=== PATIENT | male | born 1950 | race African-American/Black ===

== ENCOUNTER → 2017-08-18 | Outpatient (CLI) | payer MEDICARE ==
[~2017-08-18] MED LIST: ACCUPRIL40 MG PO; AMLODIPINE BESY10 MG PO; FLOMAX0.4 MG PO
--- NOTE | ~2017-08-18 | S ---
[facility] [address] SURGICAL PATH RPT PROCEDURE Name: ISABEL BOLANOS Room #: REG [facility]..#: [id number] Admission: 08/18/17 Date of : 50 Discharge: Report #: [id number] Path Case #: [id number] PATHOLOGY REPORT COLLECTION DATE: 08/18/2017 RECEIVED DATE: 08/18/2017 SUBMITTING PHYS: Dr. Ryne Oliva OTHER PHYS: Dr. Ryne Martinez SPECIMEN(S) RECEIVED: A.Right pelvic lymph node * * * * * * * * * * * * FINAL DIAGNOSIS: Tissue designated as "right pelvic lymph node", needle core biopsy: - ATYPICAL ACINAR PROLIFERATION WITH CRIBRIFORM ARCHITECTURE. (PLEASE SEE COMMENT) - No background lymph node tissue present in the sample. (IUV:jovany; 08/20/2017) COMMENT: Examination shows cribriform architecture within the acinar glands sampled. Focal pigment is identified. Occasional to rare macronucleoli are present as well. Per discussion with Dr. Ryne Oliva at approximately 12:30 p.m. on 08/20/2017, this represents a lymph node which is towards the inguinal region and not in the vicinity of prostate. There is no residual lymph node tissue present in this sample. Definitive capsule is not identified as well. While findings may represent a metastatic prostatic adenocarcinoma (Cobden grade 4+3), a partially sampled seminal vesicle cannot be excluded based on histology. Correlate with clinical findings and with radiographic findings to ascertain that this represents a metastatic adenocarcinoma within the lymph node. Excision of additional tissue for complete morphologic evaluation may provide additional information if clinically indicated. Co-review: Dr. Nathalia Matta and Dr. Delaney Castillo. (IUV:jovany; 08/20/2017) PATHOLOGIST: Awa Barnard M.D. REPORT ELECTRONICALLY SIGNED BY: Awa Barnard M.D. DATE/TIME: 08/20/2017 15:00 * * * * * * * * * * * * GROSS PATHOLOGY: Received in formalin labeled "Isabel Bolanos," and verified as, "right pelvic lymph node". Received are four distinct needle cores of [address] [address] SURGICAL PATH RPT PROCEDURE Name: ISABEL BOLANOS [id number]mission: 08/18/17 Date of : 50 Discharge: Report #: [id number] Path Case #: [id number] soft tissue ranging from 0.4 to 1.0 cm in length, which are submitted entirely in cassette A1. (CAA; 08/19/2017) CLINICAL HISTORY: Prostate cancer INITIAL CPT CODE(S): A; 37723 Professional services performed by [facility] at [address], [place] [address] [facility] at [address] [place] [address]., [address] [address]. [facility] [address] [address] PHONE: [phone] DIRECTOR: Dayron Burgos M.D. * * * END OF REPORT * * *
[2017-08-18 10:18] LABS: HEMATOCRIT 41.7 % (42.0-52.0); HEMOGLOBIN 13.5 gm/dL (14.0-18.0); MCH 27.6 pg (26.0-34.0); MCHC 32.4 g/dL (28.0-37.0); MCV 85.1 fL (80.0-100.0); RBC 4.9 mil/uL (4.50-6.00); RDW 14.4 % (10.5-14.5); WBC 9.7 thou/uL (4.0-11.0)
[2017-08-18 10:27] LABS: CALCIUM 9.2 mg/dL (8.5-10.1); CREATININE 0.9 mg/dL (0.7-1.3); POTASSIUM 4.1 mmol/L (3.5-5.1)
[2017-08-18 10:34] LABS: ALBUMIN 3.5 g/dL (3.4-5.0); TOTAL BILIRUBIN 0.4 mg/dL (<0.1-1.0)
[2017-08-18 10:39] LABS: PROTIME 9.8 Seconds (9.3-11.4)
[2017-08-18 11:50] VITALS: BP 187/67
[2017-08-18 12:05] VITALS: BP 130/84
[2017-08-18 12:10] VITALS: BP 194/74
[2017-08-18 12:15] VITALS: BP 187/75
[2017-08-18 12:20] VITALS: BP 167/57
== END | disposition home or self-care (01) ==
LOC: CAT 06:13
PROVIDERS: Radiology Diagnostic Radiology
DX: N42.32 Atypical small acinar proliferation of prostate (principal); I10 Essential (primary) hypertension; F17.210 Nicotine dependence, cigarettes, uncomplicated; Z98.890 Other specified postprocedural states; Z85.46 Personal history of malignant neoplasm of prostate; Z96.643 Presence of artificial hip joint, bilateral; Z79.899 Other long term (current) drug therapy; Z79.01 Long term (current) use of anticoagulants